=== PATIENT | female | born 1960 | race Caucasian/White ===

== ENCOUNTER 2022-04-24 22:12 | Inpatient (IN) ==
[2022-04-24] MEDS ORDERED: ONDANSETRON 4 MG/2 ML VIAL IV ONE ×2 (22:25→22:59)
[2022-04-24] MEDS ORDERED: MORPHINE 2 MG/1 ML SYRINGE IV ONE (22:25)
[2022-04-24] MEDS ORDERED: CYCLOBENZAPRINE 10 MG TABLET PO STA (22:25)
[2022-04-24] MEDS ORDERED: HYDROmorphone 1 MG/1 ML SYRINGE IV STA (22:59)
[2022-04-24 23:56] LABS: INR 0.9
[2022-04-25 00:04] LABS: Albumin 3.2 G/DL (3.4-5.0); Bilirubin,Total 0.4 MG/DL (0.20-1.00); Calcium 8.8 MG/DL (8.5-10.1); Osmolality,Calculated 280.8 MOS/KG (273-304); Potassium 3.5 MMOL/L (3.5-5.1); Total Protein 7.4 G/DL (6.4-8.2)
[2022-04-25 00:17] LABS: Basophils # 0.1 10*3/uL (0.0-0.2); Basophils % 0.6 % (0.0-0.8); Eosinophils # 0.2 10*3/uL (0.0-0.87); Eosinophils % 1.5 % (0.00-10.9); Hematocrit 36.3 VOL% (35.7-47.0); Hemoglobin 11.4 GM/DL (12.0-16.0); Immature Granulocytes % 1.4 %; Immature Granulocytes Absolute 0.15 #; Lymphocytes # 1.7 10*3/uL (1.4-4.0); Lymphocytes % 15.6 % (21.3-54.2); Mean Corpuscular HGB Conc 31.4 GM/DL (32-36); Mean Corpuscular Volume 93.3 FL (87-102); Mean Platelet Volume 10.7 FL (9.6-12.0); Monocytes # 0.9 10*3/uL (0.11-0.8); Monocytes % 8.3 % (1.7-12.7); Neutrophils % 72.6 % (38.7-73.9); Platelet Count 288 T/CUMM (130-400); Red Blood Count 3.89 MC/CUMM (3.8-5.5); Red Cell Distribution Width 14.9 % (9.3-17.3); White Blood Count 10.6 T/CUMM (4-12)
[2022-04-25] MEDS ORDERED: GLUCAGON 1 MG VIAL IM PRN (01:23)
[2022-04-25] MEDS ORDERED: ACETAMINOPHEN 325 MG TABLET PO PRN (01:23)
[2022-04-25] MEDS ORDERED: ALUMINUM/MAGNES/SIMETH MAX STR 30 ML UDCUP PO PRN (01:23)
[2022-04-25] MEDS ORDERED: ONDANSETRON 4 MG/2 ML VIAL IV PRN (01:23)
[2022-04-25] MEDS ORDERED: MAGNESIUM SULF RIDER 2 GM/50 ML PREMIX IV PRN (01:28)
[2022-04-25] MEDS ORDERED: MAGNESIUM SULF RIDER 4 GM/100 ML PREMIX IV PRN (01:28)
[2022-04-25] MEDS ORDERED: DEXTROSE 10% 250 ML BAG IV PRN (01:30)
[2022-04-25] MEDS: SODIUM CHLORIDE 0.9% 1,000 ML IV SCH ×4 (01:35→20:42)
[2022-04-25] MEDS: MORPHINE 2 MG/1 ML SYRINGE IV PRN ×4 (03:32→20:42)
[2022-04-25] MEDS: POTASSIUM CHLORIDE RIDER 10 MEQ/100 ML PREMIX IV PRN ×3 (03:49→06:12)
[2022-04-25 05:47] LABS: Basophils % 0.3 % (0.0-0.8); Eosinophils # 0.1 10*3/uL (0.0-0.87); Eosinophils % 0.5 % (0.00-10.9); Hematocrit 34.9 VOL% (35.7-47.0); Hemoglobin 10.7 GM/DL (12.0-16.0); Immature Granulocytes % 0.7 %; Immature Granulocytes Absolute 0.06 #; Mean Corpuscular HGB Conc 30.7 GM/DL (32-36); Mean Corpuscular Volume 95.4 FL (87-102); Mean Platelet Volume 10.8 FL (9.6-12.0); Monocytes # 0.7 10*3/uL (0.11-0.8); Monocytes % 7.2 % (1.7-12.7); Neutrophils % 80.3 % (38.7-73.9); Platelet Count 262 T/CUMM (130-400); Red Blood Count 3.66 MC/CUMM (3.8-5.5); White Blood Count 9.2 T/CUMM (4-12)
[2022-04-25 05:56] LABS: INR 0.9; PT Patient Result 10.3 SECS (10.5-12.0); Partial Thromboplastin Time 26.7 SECS (23.8-32.1)
[2022-04-25 05:59] LABS: Calcium 8.4 MG/DL (8.5-10.1); Osmolality,Calculated 285.7 MOS/KG (273-304); Potassium 4.3 MMOL/L (3.5-5.1)
[2022-04-25] MEDS: DOCUSATE SODIUM 100 MG CAPSULE PO SCH ×2 (08:05→20:41)
[2022-04-25] MEDS: LEVOTHYROXINE 112 MCG TABLET PO SCH (08:05)
[2022-04-25] MEDS: PANTOPRAZOLE 40 MG TABLET PO SCH (09:23)
[2022-04-25] MEDS: amLODIPine 2.5 MG TABLET PO SCH (09:23)
[2022-04-25] MEDS: METOPROLOL SUCCINATE XL 100 MG TABLET PO SCH (09:23)
[2022-04-25] MEDS: INSULIN REGULAR 100 UNIT/ML SUBCUT SCH ×4 (09:24→20:41)
[2022-04-25] MEDS ORDERED: MORPHINE 2 MG/1 ML SYRINGE IV ONE (09:31)
[2022-04-25] MEDS ORDERED: MIDAZOLAM 2 MG/2 ML VIAL ONE ×2 (10:38→11:03)
[2022-04-25] MEDS ORDERED: SUFentanil 50 MCG/ML AMP ONE (10:39)
[2022-04-25] MEDS ORDERED: ONDANSETRON 4 MG/2 ML VIAL ONE (11:03)
[2022-04-25] MEDS ORDERED: PHENYLEPHRINE 1 MG/10 ML SYRINGE IV ONE (11:03)
[2022-04-25] MEDS ORDERED: LIDOCAINE 2% 5 ML VIAL ONE (11:03)
[2022-04-25] MEDS ORDERED: SEVOFLURANE 1 UNIT/15 MINUTE INH ONE ×6 (11:03→12:17)
[2022-04-25] MEDS ORDERED: propofoL 200 MG/20 ML VIAL IV ONE (11:03)
[2022-04-25] MEDS ORDERED: PHENYLEPHRINE 10 MG/1 ML VIAL IV ONE (11:05)
[2022-04-25] MEDS ORDERED: SODIUM CHLORIDE 0.9% 100 ML IV ONE (11:05)
[2022-04-25] MEDS ORDERED: ceFAZolin 1,000 MG VIAL ONE (11:08)
[2022-04-25] MEDS ORDERED: VANCOMYCIN 1,000 MG VIAL ONE (11:08)
[2022-04-25] MEDS ORDERED: SODIUM CHLORIDE 0.9% 250 ML IV ONE (11:41)
[2022-04-25] MEDS ORDERED: MAGNESIUM HYDROXIDE SUSP 30 ML UDCUP PO PRN (12:22)
[2022-04-25] MEDS: FUROSEMIDE 40 MG TABLET PO SCH (15:46)
[2022-04-25 16:14] LABS: Bacteria,Urine Occasional /HPF (Few); Hyaline Casts,Urine 1 /LPF (0-3); Mucus,Urine Occasional /LPF (Occasional); Squamous Epithelial Cell,Urine Occasional /HPF (0-10); Urine Appearance Clear (Clear); Urine Color Yellow (Yellow)
[2022-04-25 16:15] LABS: Bilirubin,Urine Negative (Negative); Blood, Urine Small mg/dL (Negative); Glucose,Urine (UA) 250 mg/dL (Negative); Ketones,Urine Negative (Negative); Nitrite,Urine Negative (Negative); Protein,Urine 100 mg/dL (Negative); Urine Urobilinogen 0.2 eU/dL (<2.0)
[2022-04-25] MEDS: ISOSORBIDE MONONITRATE 30 MG TABLET PO SCH (20:41)
[2022-04-25] MEDS: ROSUVASTATIN 20 MG TABLET PO SCH (20:41)
[2022-04-25] MEDS: NORTRIPTYLINE 25 MG CAPSULE PO SCH (20:41)
[2022-04-26] MEDS: MORPHINE 2 MG/1 ML SYRINGE IV PRN ×5 (00:36→21:41)
[2022-04-26 05:14] LABS: Calcium 8.1 MG/DL (8.5-10.1); Potassium 4.6 MMOL/L (3.5-5.1)
[2022-04-26 05:30] LABS: Basophils % 0.3 % (0.0-0.8); Eosinophils # 0.1 10*3/uL (0.0-0.87); Hematocrit 27.6 VOL% (35.7-47.0); Hemoglobin 8.1 GM/DL (12.0-16.0); Immature Granulocytes % 0.8 %; Immature Granulocytes Absolute 0.06 #; Lymphocytes # 1.3 10*3/uL (1.4-4.0); Lymphocytes % 16.6 % (21.3-54.2); Mean Corpuscular HGB Conc 29.3 GM/DL (32-36); Mean Corpuscular Volume 99.6 FL (87-102); Mean Platelet Volume 11.2 FL (9.6-12.0); Monocytes % 12.7 % (1.7-12.7); Neutrophils % 68.6 % (38.7-73.9); Platelet Count 167 T/CUMM (130-400); Red Blood Count 2.77 MC/CUMM (3.8-5.5); Red Cell Distribution Width 14.8 % (9.3-17.3); White Blood Count 7.7 T/CUMM (4-12)
[2022-04-26 06:09] LABS: Platelet Estimate Adequate
[2022-04-26] MEDS: LEVOTHYROXINE 112 MCG TABLET PO SCH (06:34)
[2022-04-26] MEDS: SODIUM CHLORIDE 0.9% 1,000 ML IV SCH ×3 (06:35→18:31)
[2022-04-26] MEDS: INSULIN REGULAR 100 UNIT/ML SUBCUT SCH ×4 (08:27→21:07)
[2022-04-26] MEDS: PANTOPRAZOLE 40 MG TABLET PO SCH (08:27)
[2022-04-26] MEDS: DOCUSATE SODIUM 100 MG CAPSULE PO SCH ×2 (08:27→21:05)
[2022-04-26] MEDS: FUROSEMIDE 40 MG TABLET PO SCH (08:27)
[2022-04-26] MEDS: METOPROLOL SUCCINATE XL 100 MG TABLET PO SCH (09:45)
[2022-04-26] MEDS: amLODIPine 2.5 MG TABLET PO SCH (09:45)
[2022-04-26] MEDS: CALCIUM (CARBONATE)/VITAMIN D 600 MG-400 UNIT TABLET PO SCH ×2 (11:58→21:06)
[2022-04-26] MEDS: ROSUVASTATIN 20 MG TABLET PO SCH (21:05)
[2022-04-26] MEDS: INSULIN GLARGINE 100 UNIT/ML SUBCUT SCH (21:06)
[2022-04-26] MEDS: NORTRIPTYLINE 25 MG CAPSULE PO SCH (21:06)
[2022-04-26] MEDS: ISOSORBIDE MONONITRATE 30 MG TABLET PO SCH (21:06)
[2022-04-27] MEDS: MORPHINE 2 MG/1 ML SYRINGE IV PRN ×6 (01:51→23:11)
[2022-04-27] MEDS: SODIUM CHLORIDE 0.9% 1,000 ML IV SCH ×3 (03:33→23:19)
[2022-04-27 04:52] LABS: Basophils % 0.4 % (0.0-0.8); Eosinophils # 0.1 10*3/uL (0.0-0.87); Eosinophils % 1.7 % (0.00-10.9); Hematocrit 27.2 VOL% (35.7-47.0); Hemoglobin 8.5 GM/DL (12.0-16.0); Immature Granulocytes % 1.4 %; Immature Granulocytes Absolute 0.11 #; Lymphocytes # 1.6 10*3/uL (1.4-4.0); Mean Corpuscular HGB Conc 31.3 GM/DL (32-36); Mean Corpuscular Volume 94.4 FL (87-102); Mean Platelet Volume 10.4 FL (9.6-12.0); Monocytes # 1.2 10*3/uL (0.11-0.8); Monocytes % 14.3 % (1.7-12.7); Neutrophils % 63.2 % (38.7-73.9); Platelet Count 200 T/CUMM (130-400); Red Blood Count 2.88 MC/CUMM (3.8-5.5); Red Cell Distribution Width 14.4 % (9.3-17.3); White Blood Count 8.1 T/CUMM (4-12)
[2022-04-27 05:09] LABS: Calcium 8.3 MG/DL (8.5-10.1); Osmolality,Calculated 277.7 MOS/KG (273-304); Potassium 3.1 MMOL/L (3.5-5.1)
[2022-04-27] MEDS: LEVOTHYROXINE 112 MCG TABLET PO SCH (05:51)
[2022-04-27] MEDS: POTASSIUM CHLORIDE 20 MEQ TABLET PO PRN ×4 (06:07→12:00)
[2022-04-27] MEDS: INSULIN REGULAR 100 UNIT/ML SUBCUT SCH ×4 (08:32→21:10)
[2022-04-27] MEDS: CALCIUM (CARBONATE)/VITAMIN D 600 MG-400 UNIT TABLET PO SCH ×2 (08:34→21:11)
[2022-04-27] MEDS: PANTOPRAZOLE 40 MG TABLET PO SCH (08:34)
[2022-04-27] MEDS: DOCUSATE SODIUM 100 MG CAPSULE PO SCH ×2 (08:34→21:11)
[2022-04-27] MEDS: METOPROLOL SUCCINATE XL 100 MG TABLET PO SCH (08:34)
[2022-04-27] MEDS: amLODIPine 2.5 MG TABLET PO SCH (08:34)
[2022-04-27] MEDS: RIVAROXABAN 20 MG TABLET PO SCH (11:57)
[2022-04-27] MEDS: INSULIN GLARGINE 100 UNIT/ML SUBCUT SCH (21:11)
[2022-04-27] MEDS: NORTRIPTYLINE 25 MG CAPSULE PO SCH (21:11)
[2022-04-27] MEDS: ISOSORBIDE MONONITRATE 30 MG TABLET PO SCH (21:11)
[2022-04-27] MEDS: ROSUVASTATIN 20 MG TABLET PO SCH (21:11)
[2022-04-28 04:56] LABS: Basophils % 0.4 % (0.0-0.8); Eosinophils # 0.2 10*3/uL (0.0-0.87); Hemoglobin 7.8 GM/DL (12.0-16.0); Immature Granulocytes % 1.8 %; Immature Granulocytes Absolute 0.18 #; Lymphocytes # 1.8 10*3/uL (1.4-4.0); Lymphocytes % 17.6 % (21.3-54.2); Mean Corpuscular Volume 96.3 FL (87-102); Mean Platelet Volume 10.8 FL (9.6-12.0); Monocytes # 1.3 10*3/uL (0.11-0.8); Monocytes % 12.4 % (1.7-12.7); NRBC # 0.02 10*3/uL; Neutrophils % 65.8 % (38.7-73.9); Platelet Count 211 T/CUMM (130-400); Red Cell Distribution Width 14.5 % (9.3-17.3); White Blood Count 10.1 T/CUMM (4-12)
[2022-04-28 05:06] LABS: Calcium 8.8 MG/DL (8.5-10.1); Osmolality,Calculated 277.8 MOS/KG (273-304); Potassium 4.1 MMOL/L (3.5-5.1)
[2022-04-28] MEDS: MORPHINE 2 MG/1 ML SYRINGE IV PRN ×4 (05:38→23:49)
[2022-04-28] MEDS: LEVOTHYROXINE 112 MCG TABLET PO SCH (05:41)
[2022-04-28] MEDS ORDERED: SODIUM CHLORIDE 0.9% 1,000 ML IV PRN (07:42)
[2022-04-28] MEDS: METOPROLOL SUCCINATE XL 100 MG TABLET PO SCH (08:27)
[2022-04-28] MEDS: INSULIN REGULAR 100 UNIT/ML SUBCUT SCH ×4 (08:27→20:20)
[2022-04-28] MEDS: amLODIPine 2.5 MG TABLET PO SCH (08:28)
[2022-04-28] MEDS: RIVAROXABAN 20 MG TABLET PO SCH (08:28)
[2022-04-28] MEDS: PANTOPRAZOLE 40 MG TABLET PO SCH (08:28)
[2022-04-28] MEDS: DOCUSATE SODIUM 100 MG CAPSULE PO SCH ×2 (08:28→20:18)
[2022-04-28] MEDS: CALCIUM (CARBONATE)/VITAMIN D 600 MG-400 UNIT TABLET PO SCH ×2 (08:28→20:17)
[2022-04-28] MEDS: SODIUM CHLORIDE 0.9% 1,000 ML IV SCH ×2 (10:13→19:00)
[2022-04-28] MEDS: ISOSORBIDE MONONITRATE 30 MG TABLET PO SCH (20:18)
[2022-04-28] MEDS: ROSUVASTATIN 20 MG TABLET PO SCH (20:18)
[2022-04-28] MEDS: NORTRIPTYLINE 25 MG CAPSULE PO SCH (20:18)
[2022-04-28] MEDS ORDERED: INSULIN GLARGINE 100 UNIT/ML SUBCUT SCH (21:00)
[2022-04-29] MEDS: MORPHINE 2 MG/1 ML SYRINGE IV PRN (03:40)
[2022-04-29 05:25] LABS: Basophils # 0.1 10*3/uL (0.0-0.2); Basophils % 0.7 % (0.0-0.8); Eosinophils # 0.3 10*3/uL (0.0-0.87); Eosinophils % 3.1 % (0.00-10.9); Hematocrit 30.3 VOL% (35.7-47.0); Hemoglobin 9.2 GM/DL (12.0-16.0); Immature Granulocytes % 2.5 %; Immature Granulocytes Absolute 0.22 #; Lymphocytes # 1.9 10*3/uL (1.4-4.0); Lymphocytes % 22.2 % (21.3-54.2); Mean Corpuscular HGB Conc 30.4 GM/DL (32-36); Mean Corpuscular Volume 92.4 FL (87-102); Mean Platelet Volume 10.6 FL (9.6-12.0); Monocytes % 11.9 % (1.7-12.7); NRBC # 0.02 10*3/uL; Neutrophils % 59.6 % (38.7-73.9); Platelet Count 240 T/CUMM (130-400); Red Blood Count 3.28 MC/CUMM (3.8-5.5); Red Cell Distribution Width 17.1 % (9.3-17.3); White Blood Count 8.7 T/CUMM (4-12)
[2022-04-29 05:32] LABS: Osmolality,Calculated 273.8 MOS/KG (273-304); Potassium 3.7 MMOL/L (3.5-5.1)
[2022-04-29] MEDS: SODIUM CHLORIDE 0.9% 1,000 ML IV SCH (05:57)
[2022-04-29] MEDS: LEVOTHYROXINE 112 MCG TABLET PO SCH (06:08)
[2022-04-29] MEDS: INSULIN REGULAR 100 UNIT/ML SUBCUT SCH (06:46)
[2022-04-29] MEDS: amLODIPine 2.5 MG TABLET PO SCH (08:33)
[2022-04-29] MEDS: CALCIUM (CARBONATE)/VITAMIN D 600 MG-400 UNIT TABLET PO SCH (08:33)
[2022-04-29] MEDS: PANTOPRAZOLE 40 MG TABLET PO SCH (08:33)
[2022-04-29] MEDS: DOCUSATE SODIUM 100 MG CAPSULE PO SCH (08:34)
[2022-04-29] MEDS: METOPROLOL SUCCINATE XL 100 MG TABLET PO SCH (08:34)
[2022-04-29] MEDS: RIVAROXABAN 20 MG TABLET PO SCH (08:34)
[2022-04-29 12:34] VITALS: BP 127/59
== END 2022-04-29 15:50 | DRG 308 ==
LOC: EDUNIT# → EDBD → N.ED 22:12 → SUATTDRO 04-25 01:23 → N.EDINP 04-25 01:23 → N.3E 04-25 03:49
PROVIDERS: ADMIT Internal Medicine; ATTEND Internal Medicine

== ENCOUNTER 2022-04-30 09:28 | Inpatient (IN) ==
[2022-04-30] MEDS ORDERED: ONDANSETRON 4 MG/2 ML VIAL IV STA (09:51)
[2022-04-30] MEDS ORDERED: SODIUM CHLORIDE 0.9% 1,000 ML IV STA (09:51)
[2022-04-30] MEDS ORDERED: PANTOPRAZOLE 40 MG VIAL IV STA (09:51)
[2022-04-30 10:05] LABS: Basophils % 0.5 % (0.0-0.8); Eosinophils # 0.1 10*3/uL (0.0-0.87); Eosinophils % 0.8 % (0.00-10.9); Hematocrit 33.8 VOL% (35.7-47.0); Hemoglobin 10.5 GM/DL (12.0-16.0); Immature Granulocytes % 2.8 %; Immature Granulocytes Absolute 0.23 #; Lymphocytes # 0.9 10*3/uL (1.4-4.0); Lymphocytes % 10.7 % (21.3-54.2); Mean Corpuscular HGB Conc 31.1 GM/DL (32-36); Mean Corpuscular Volume 89.4 FL (87-102); Mean Platelet Volume 11.4 FL (9.6-12.0); Monocytes # 0.7 10*3/uL (0.11-0.8); Monocytes % 8.4 % (1.7-12.7); Neutrophils % 76.8 % (38.7-73.9); Red Blood Count 3.78 MC/CUMM (3.8-5.5); Red Cell Distribution Width 16.8 % (9.3-17.3); White Blood Count 8.3 T/CUMM (4-12)
[2022-04-30 10:14] LABS: Platelet Count 197 T/CUMM (130-400)
[2022-04-30 10:22] LABS: Albumin 2.2 G/DL (3.4-5.0); Bilirubin,Total 0.8 MG/DL (0.20-1.00); Calcium 8.7 MG/DL (8.5-10.1); Osmolality,Calculated 282.7 MOS/KG (273-304); Potassium 4.7 MMOL/L (3.5-5.1); Total Protein 7.1 G/DL (6.4-8.2)
[2022-04-30 10:57] LABS: Bacteria,Urine Occasional /HPF (Few); RBC,Urine 4 /HPF (0-4); Squamous Epithelial Cell,Urine Occasional /HPF (0-10)
[2022-04-30 10:58] LABS: Bilirubin,Urine Negative (Negative); Blood, Urine Trace mg/dL (Negative); Glucose,Urine (UA) 500 mg/dL (Negative); Ketones,Urine Negative (Negative); Nitrite,Urine Negative (Negative); Protein,Urine 100 mg/dL (Negative); Urine Appearance Clear (Clear); Urine Color Yellow (Yellow); Urine Urobilinogen 0.2 eU/dL (<2.0); Urine pH 8.5 (4.5-8.0)
[2022-04-30] MEDS ORDERED: GLUCAGON 1 MG VIAL IM PRN (11:10)
[2022-04-30] MEDS ORDERED: ONDANSETRON 4 MG/2 ML VIAL IV PRN (11:10)
[2022-04-30] MEDS ORDERED: ACETAMINOPHEN 325 MG TABLET PO PRN (11:10)
[2022-04-30] MEDS ORDERED: hydrALAZINE 20 MG/1 ML VIAL IV PRN (11:15)
[2022-04-30] MEDS ORDERED: DEXTROSE 10% 250 ML BAG IV PRN (11:15)
[2022-04-30] MEDS: INSULIN LISPRO 100 UNIT/ML SUBCUT SCH ×3 (11:30→22:43)
[2022-04-30] MEDS: MORPHINE 2 MG/1 ML SYRINGE IV PRN ×3 (14:56→22:35)
[2022-04-30] MEDS: SODIUM CHLORIDE 0.9% 1,000 ML IV SCH (15:04)
[2022-04-30 17:01] LABS: Hematocrit 31.5 VOL% (35.7-47.0); Hemoglobin 9.8 GM/DL (12.0-16.0)
[2022-04-30 19:37] LABS: Hematocrit 30.7 VOL% (35.7-47.0); Hemoglobin 9.6 GM/DL (12.0-16.0)
[2022-04-30] MEDS: PANTOPRAZOLE 40 MG VIAL IV SCH (22:36)
[2022-05-01] MEDS: MORPHINE 2 MG/1 ML SYRINGE IV PRN ×6 (01:35→22:06)
[2022-05-01] MEDS: SODIUM CHLORIDE 0.9% 1,000 ML IV SCH (02:17)
[2022-05-01 05:15] LABS: Basophils % 0.3 % (0.0-0.8); Eosinophils # 0.1 10*3/uL (0.0-0.87); Eosinophils % 0.7 % (0.00-10.9); Hemoglobin 9.1 GM/DL (12.0-16.0); Immature Granulocytes % 1.4 %; Immature Granulocytes Absolute 0.16 #; Lymphocytes # 1.3 10*3/uL (1.4-4.0); Mean Corpuscular HGB Conc 30.3 GM/DL (32-36); Mean Corpuscular Volume 91.7 FL (87-102); Monocytes # 1.3 10*3/uL (0.11-0.8); Monocytes % 11.8 % (1.7-12.7); NRBC # 0.03 10*3/uL; Neutrophils % 73.8 % (38.7-73.9); Platelet Count 286 T/CUMM (130-400); Red Blood Count 3.27 MC/CUMM (3.8-5.5); Red Cell Distribution Width 16.6 % (9.3-17.3); White Blood Count 11.2 T/CUMM (4-12)
[2022-05-01 05:17] LABS: Hematocrit 29.8 VOL% (35.7-47.0)
[2022-05-01 05:36] LABS: Osmolality,Calculated 274.8 MOS/KG (273-304)
[2022-05-01] MEDS: LEVOTHYROXINE 100 MCG VIAL IV SCH (05:36)
[2022-05-01] MEDS: INSULIN LISPRO 100 UNIT/ML SUBCUT SCH ×4 (08:35→23:17)
[2022-05-01] MEDS: PANTOPRAZOLE 40 MG VIAL IV SCH ×2 (10:58→21:33)
[2022-05-01 12:22] LABS: Hematocrit 31.1 VOL% (35.7-47.0); Hemoglobin 9.6 GM/DL (12.0-16.0)
[2022-05-02] MEDS: MORPHINE 2 MG/1 ML SYRINGE IV PRN ×6 (02:15→22:35)
[2022-05-02] MEDS: LEVOTHYROXINE 100 MCG VIAL IV SCH (06:03)
[2022-05-02] MEDS: SODIUM CHLORIDE 0.9% 1,000 ML IV SCH ×3 (06:03→15:58)
[2022-05-02] MEDS: INSULIN LISPRO 100 UNIT/ML SUBCUT SCH ×4 (07:13→21:00)
[2022-05-02] MEDS: PANTOPRAZOLE 40 MG VIAL IV SCH ×2 (08:00→20:58)
[2022-05-02 08:30] LABS: Basophils # 0.1 10*3/uL (0.0-0.2); Basophils % 0.6 % (0.0-0.8); Eosinophils # 0.2 10*3/uL (0.0-0.87); Eosinophils % 2.3 % (0.00-10.9); Hematocrit 31.3 VOL% (35.7-47.0); Hemoglobin 9.6 GM/DL (12.0-16.0); Immature Granulocytes % 4.3 %; Immature Granulocytes Absolute 0.44 #; Lymphocytes # 1.6 10*3/uL (1.4-4.0); Mean Corpuscular HGB Conc 30.7 GM/DL (32-36); Mean Corpuscular Volume 91.3 FL (87-102); Mean Platelet Volume 9.7 FL (9.6-12.0); Monocytes # 1.2 10*3/uL (0.11-0.8); Monocytes % 11.3 % (1.7-12.7); Neutrophils % 66.5 % (38.7-73.9); Platelet Count 348 T/CUMM (130-400); Red Blood Count 3.43 MC/CUMM (3.8-5.5); Red Cell Distribution Width 16.4 % (9.3-17.3); White Blood Count 10.3 T/CUMM (4-12)
[2022-05-02 08:41] LABS: Calcium 8.6 MG/DL (8.5-10.1); Osmolality,Calculated 280.3 MOS/KG (273-304); Potassium 3.4 MMOL/L (3.5-5.1)
[2022-05-02] MEDS: METOPROLOL SUCCINATE XL 100 MG TABLET PO SCH (10:33)
[2022-05-02] MEDS: POTASSIUM CHLORIDE 20 MEQ TABLET PO PRN ×2 (10:34→12:40)
[2022-05-03] MEDS: MORPHINE 2 MG/1 ML SYRINGE IV PRN ×5 (02:17→22:57)
[2022-05-03 06:53] LABS: Basophils # 0.1 10*3/uL (0.0-0.2); Basophils % 0.8 % (0.0-0.8); Eosinophils # 0.4 10*3/uL (0.0-0.87); Eosinophils % 3.4 % (0.00-10.9); Hematocrit 34.9 VOL% (35.7-47.0); Hemoglobin 10.6 GM/DL (12.0-16.0); Immature Granulocytes Absolute 0.64 #; Lymphocytes # 1.9 10*3/uL (1.4-4.0); Lymphocytes % 17.6 % (21.3-54.2); Mean Corpuscular HGB Conc 30.4 GM/DL (32-36); Mean Corpuscular Volume 91.4 FL (87-102); Mean Platelet Volume 9.8 FL (9.6-12.0); Monocytes % 9.7 % (1.7-12.7); Neutrophils % 62.5 % (38.7-73.9); Platelet Count 425 T/CUMM (130-400); Red Blood Count 3.82 MC/CUMM (3.8-5.5); Red Cell Distribution Width 16.3 % (9.3-17.3); White Blood Count 10.6 T/CUMM (4-12)
[2022-05-03 07:10] LABS: Calcium 9.4 MG/DL (8.5-10.1); Osmolality,Calculated 271.1 MOS/KG (273-304)
[2022-05-03 07:14] LABS: Band Neutrophils 1 % (0-10); Eosinophils 2 % (0-10); Lymphocytes 26 % (20-55); Metamyelocytes 1 %; Microcytosis 1+; Myelocytes 3 %; Polychromasia Slight; Total Cells Counted 100
[2022-05-03] MEDS: INSULIN LISPRO 100 UNIT/ML SUBCUT SCH ×4 (09:47→20:42)
[2022-05-03] MEDS: METOPROLOL SUCCINATE XL 100 MG TABLET PO SCH (09:48)
[2022-05-03] MEDS: PANTOPRAZOLE 40 MG VIAL IV SCH ×2 (09:48→20:35)
[2022-05-03] MEDS ORDERED: POLYETHYLENE GLYCOL POWDER 17 GM PACK PO PRN (10:55)
[2022-05-03] MEDS: ISOSORBIDE MONONITRATE 30 MG TABLET PO SCH (20:35)
[2022-05-03] MEDS: DOCUSATE SODIUM 100 MG CAPSULE PO SCH (20:35)
[2022-05-04] MEDS: MORPHINE 2 MG/1 ML SYRINGE IV PRN ×6 (02:14→21:17)
[2022-05-04 05:02] LABS: Basophils # 0.1 10*3/uL (0.0-0.2); Eosinophils # 0.4 10*3/uL (0.0-0.87); Eosinophils % 3.3 % (0.00-10.9); Hematocrit 32.1 VOL% (35.7-47.0); Hemoglobin 9.7 GM/DL (12.0-16.0); Immature Granulocytes % 7.7 %; Immature Granulocytes Absolute 0.95 #; Lymphocytes # 2.3 10*3/uL (1.4-4.0); Lymphocytes % 18.9 % (21.3-54.2); Mean Corpuscular HGB Conc 30.2 GM/DL (32-36); Mean Platelet Volume 9.4 FL (9.6-12.0); Monocytes # 1.5 10*3/uL (0.11-0.8); Monocytes % 12.1 % (1.7-12.7); NRBC # 0.02 10*3/uL; Platelet Count 419 T/CUMM (130-400); Red Blood Count 3.49 MC/CUMM (3.8-5.5); Red Cell Distribution Width 16.2 % (9.3-17.3); White Blood Count 12.4 T/CUMM (4-12)
[2022-05-04] MEDS: SODIUM CHLORIDE 0.9% 1,000 ML IV SCH ×3 (05:16→21:21)
[2022-05-04 05:21] LABS: Calcium 8.6 MG/DL (8.5-10.1); Osmolality,Calculated 272.1 MOS/KG (273-304)
[2022-05-04 05:24] LABS: Band Neutrophils 1 % (0-10); Eosinophils 3 % (0-10); Lymphocytes 24 % (20-55); Metamyelocytes 1 %; Myelocytes 2 %; Total Cells Counted 100
[2022-05-04 05:25] LABS: Microcytosis 1+; Polychromasia Slight
[2022-05-04] MEDS: METOPROLOL SUCCINATE XL 100 MG TABLET PO SCH (08:46)
[2022-05-04] MEDS: INSULIN LISPRO 100 UNIT/ML SUBCUT SCH ×4 (08:46→21:17)
[2022-05-04] MEDS: amLODIPine 2.5 MG TABLET PO SCH (08:46)
[2022-05-04] MEDS: DOCUSATE SODIUM 100 MG CAPSULE PO SCH ×2 (08:46→21:17)
[2022-05-04] MEDS: PANTOPRAZOLE 40 MG VIAL IV SCH ×2 (08:47→21:16)
[2022-05-04] MEDS: ISOSORBIDE MONONITRATE 30 MG TABLET PO SCH (21:17)
[2022-05-05] MEDS: SODIUM CHLORIDE 0.9% 1,000 ML IV SCH (00:09)
[2022-05-05] MEDS: MORPHINE 2 MG/1 ML SYRINGE IV PRN ×4 (00:59→20:51)
[2022-05-05 05:01] LABS: Basophils # 0.1 10*3/uL (0.0-0.2); Basophils % 1.2 % (0.0-0.8); Eosinophils # 0.4 10*3/uL (0.0-0.87); Eosinophils % 3.5 % (0.00-10.9); Hematocrit 34.3 VOL% (35.7-47.0); Hemoglobin 10.4 GM/DL (12.0-16.0); Immature Granulocytes % 10.1 %; Immature Granulocytes Absolute 1.13 #; Lymphocytes # 2.3 10*3/uL (1.4-4.0); Lymphocytes % 20.5 % (21.3-54.2); Mean Corpuscular HGB Conc 30.3 GM/DL (32-36); Mean Corpuscular Volume 91.7 FL (87-102); Mean Platelet Volume 9.5 FL (9.6-12.0); Monocytes # 1.3 10*3/uL (0.11-0.8); Monocytes % 11.3 % (1.7-12.7); NRBC # 0.04 10*3/uL; Neutrophils % 53.4 % (38.7-73.9); Platelet Count 476 T/CUMM (130-400); Red Blood Count 3.74 MC/CUMM (3.8-5.5); Red Cell Distribution Width 16.4 % (9.3-17.3); White Blood Count 11.2 T/CUMM (4-12)
[2022-05-05 05:20] LABS: Calcium 9.2 MG/DL (8.5-10.1); Osmolality,Calculated 274.8 MOS/KG (273-304); Potassium 3.8 MMOL/L (3.5-5.1)
[2022-05-05 05:29] LABS: Band Neutrophils 5 % (0-10); Eosinophils 4 % (0-10); Lymphocytes 30 % (20-55); Metamyelocytes 1 %; Myelocytes 2 %; Total Cells Counted 100
[2022-05-05 05:30] LABS: Microcytosis 1+; Polychromasia Slight
[2022-05-05 05:31] LABS: Platelet Estimate Increased
[2022-05-05] MEDS: INSULIN LISPRO 100 UNIT/ML SUBCUT SCH ×4 (09:08→20:46)
[2022-05-05] MEDS: LACTATED RINGERS 1,000 ML IV SCH (10:42)
[2022-05-05] MEDS ORDERED: propofoL 200 MG/20 ML VIAL IV ONE (11:16)
[2022-05-05] MEDS ORDERED: LIDOCAINE 2% 5 ML VIAL ONE (11:16)
[2022-05-05] MEDS ORDERED: fentaNYL 100 MCG/2 ML VIAL ONE (11:19)
[2022-05-05] MEDS: PANTOPRAZOLE 40 MG VIAL IV SCH ×2 (13:03→20:46)
[2022-05-05] MEDS: DOCUSATE SODIUM 100 MG CAPSULE PO SCH ×2 (13:03→20:45)
[2022-05-05] MEDS: METOPROLOL SUCCINATE XL 100 MG TABLET PO SCH (13:03)
[2022-05-05] MEDS: amLODIPine 2.5 MG TABLET PO SCH (13:03)
[2022-05-05] MEDS: LEVOTHYROXINE 112 MCG TABLET PO SCH (13:03)
[2022-05-05] MEDS: ISOSORBIDE MONONITRATE 30 MG TABLET PO SCH (20:45)
[2022-05-05] MEDS ORDERED: ROSUVASTATIN 20 MG TABLET PO SCH (21:00)
[2022-05-05] MEDS ORDERED: INSULIN GLARGINE 100 UNIT/ML SUBCUT SCH (21:00)
[2022-05-05] MEDS ORDERED: MELATONIN 3 MG TABLET PO SCH (21:00)
[2022-05-05] MEDS ORDERED: NORTRIPTYLINE 25 MG CAPSULE PO SCH (21:00)
[2022-05-06] MEDS: SODIUM CHLORIDE 0.9% 1,000 ML IV SCH ×3 (00:19→15:08)
[2022-05-06] MEDS: MORPHINE 2 MG/1 ML SYRINGE IV PRN ×2 (05:55→09:36)
[2022-05-06 06:43] LABS: Basophils # 0.1 10*3/uL (0.0-0.2); Basophils % 0.7 % (0.0-0.8); Eosinophils # 0.3 10*3/uL (0.0-0.87); Eosinophils % 2.2 % (0.00-10.9); Hematocrit 32.3 VOL% (35.7-47.0); Hemoglobin 9.7 GM/DL (12.0-16.0); Immature Granulocytes % 8.6 %; Immature Granulocytes Absolute 1.03 #; Lymphocytes # 2.1 10*3/uL (1.4-4.0); Lymphocytes % 17.4 % (21.3-54.2); Mean Platelet Volume 9.6 FL (9.6-12.0); Monocytes # 1.2 10*3/uL (0.11-0.8); Monocytes % 10.1 % (1.7-12.7); NRBC # 0.03 10*3/uL; Platelet Count 500 T/CUMM (130-400); Red Blood Count 3.51 MC/CUMM (3.8-5.5); Red Cell Distribution Width 16.9 % (9.3-17.3)
[2022-05-06 07:03] LABS: Band Neutrophils 3 % (0-10); Eosinophils 3 % (0-10); Lymphocytes 18 % (20-55); Nucleated Red Blood Cells 1 (0-5); Platelet Estimate Increased; Total Cells Counted 100
[2022-05-06 07:03] LABS: Calcium 8.7 MG/DL (8.5-10.1); Potassium 3.8 MMOL/L (3.5-5.1)
[2022-05-06 07:04] LABS: Macrocytosis Slight; Polychromasia Slight
[2022-05-06 08:43] LABS: Free T4 (Free Thyroxine) 0.82 NG/DL (0.76-1.46)
[2022-05-06] MEDS: METOPROLOL SUCCINATE XL 100 MG TABLET PO SCH (09:30)
[2022-05-06] MEDS: amLODIPine 2.5 MG TABLET PO SCH (09:31)
[2022-05-06] MEDS: LEVOTHYROXINE 112 MCG TABLET PO SCH (09:31)
[2022-05-06] MEDS: PANTOPRAZOLE 40 MG VIAL IV SCH (09:31)
[2022-05-06] MEDS: DOCUSATE SODIUM 100 MG CAPSULE PO SCH (09:31)
[2022-05-06] MEDS: INSULIN LISPRO 100 UNIT/ML SUBCUT SCH ×2 (09:33→12:53)
[2022-05-06] MEDS: LACTATED RINGERS 1,000 ML IV SCH (10:33)
[2022-05-06 12:02] VITALS: BP 134/49
== END 2022-05-06 15:04 | DRG 661 ==
LOC: N.ED 09:28 → SUATTDRO 11:10 → N.EDINP 11:10 → N.5E 16:01
PROVIDERS: ADMIT Internal Medicine; ATTEND Internal Medicine